=== PATIENT | male | born 1975 | race Caucasian/White ===

== ENCOUNTER 2019-01-15 11:50 | Emergency (ER) | payer MEDICAID ==
[2019-01-15] MEDS: Ketorolac 60 MG/2 ML SDV IM ONE (12:02)
[2019-01-15] MEDS ORDERED: Ibuprofen 800 MG Tab ONE (12:15)
[2019-01-15] MEDS ORDERED: Acetaminophen/oxyCODONE 325-5 MG Tab ONE (12:15)
[2019-01-15 12:36] VITALS: BP 153/96; PULSE 102
--- NOTE | 2019-01-15 15:06 | ER ---
HPI: A 44-year-old male who comes in with complaints of falling on the ice while ice fishing. He was [place] on [address] [place]. He fell today and injured the posterior aspect of his right shoulder. The patient tells me he cannot use his arm much and he states the pain is severe. The patient has not taken any ibuprofen or Tylenol, telling me that he has not had any available. The patient is otherwise healthy. He denies any other injuries. OBJECTIVE: GENERAL APPEARANCE: The patient is awake and alert. He is uncomfortable. He rates his pain at 8 or 9/10. VITAL SIGNS: Reviewed. Pulse is 102. He is afebrile. Blood pressure 153/96, respirations 18. EXTREMITIES: Examining the right shoulder reveals that the area of most tenderness appears to be on the posterior aspect of the shoulder that radiates down the posterior to the lateral aspect of the upper right arm. The patient has minimal movement today without an increase in pain. Hand grasp is present and equal. He denies any pain, numbness, or tingling distal to the shoulder. LAB AND X-RAY: X-ray of the shoulder reveals a fracture of the scapula. It is a vertical fracture down roughly the middle of the scapula. The inferior aspect turns in the lateral direction, it is away from the shoulder joint. DIAGNOSIS: Scapular fracture, right side. TREATMENT PLAN: Toradol 60 mg was given IM. I did consult with Ortho, Dr. Briggs and a sling will be applied. The patient is to use ice frequently. I will give him Percocet to take regularly today and then as needed as well as continuing ibuprofen 800 mg t.i.d. The patient should follow up back home which is [place], [place] in roughly a week, sooner of course as needed. The patient has no further questions. CRS/MODL /[id number]
--- NOTE | 2019-01-16 13:04 | CR ---
DATE OF SERVICE: 01/15/19 CLINICAL DATA: Shoulder injury - fell on ice. RIGHT SHOULDER: There is a lucency through the infraspinous scapula with cortical stepoff, consistent with a fracture. CT scan may be helpful to better characterize this. No other acute abnormalities. [id number] [facility]
== END 2019-01-15 12:57 | disposition home or self-care (01) ==
LOC: LB.ED 11:50
DX: S42.101A Fracture of unspecified part of scapula, right shoulder, initial encounter for closed fracture (principal); W19.XXXA Unspecified fall, initial encounter
CPT/HCPCS: 73030-RT; 96372; 99283-25; A9270-GY; J1885